=== PATIENT | female | born 1935 | race African-American/Black ===

== ENCOUNTER → 2017-04-20 | Outpatient (CLI) | payer MEDICARE, OTHER ==
[2014-07-19 16:00] VITALS: BP 162/72
--- NOTE | 2017-04-20 12:50 | RAD ---
DATE: 04/20/2017. EXAM: DIGITAL SCREEN LT W/CAD. HISTORY: Personal history of right breast cancer status post mastectomy. Routine left surveillance. COMPARISON: 03/08/2016, 03/19/2015, 11/21/2013. This study was interpreted with the benefit of Computerized Aided Detection (CAD). FINDINGS: The breast parenchyma shows scattered fibroglandular densities. Breast parenchyma level B.. There are no suspicious masses, microcalcifications or architectural distortion. A density superior to the left nipple on the MLO view has stable correlates. Sigmoid, scattered and coarse calcifications are benign. BI-RADS CATEGORY: 2 BENIGN FINDING(S). RECOMMENDED FOLLOW-UP: 12M 12 MONTH FOLLOW-UP. PQRS compliance statement: Patient information was entered into a reminder system with a target due date 04/20/2018 for the next mammogram. Mammography is a sensitive method for finding small breast cancers, but it does not detect them all and is not a substitute for careful clinical examination. A negative mammogram does not negate a clinically suspicious finding and should not result in delay in biopsying a clinically suspicious abnormality. "Our facility is accredited by the [employer] Mammography [employer]."
== END | disposition home or self-care (01) ==
LOC: MAMMO 11:17
PROVIDERS: ATTEND Registered Nurse
DX: Z12.31 Encounter for screening mammogram for malignant neoplasm of breast (principal)
CPT/HCPCS: G0202; 77067

== ENCOUNTER 2017-06-21 20:36 | Emergency (ER) | payer MEDICARE, OTHER ==
[~2017-06-21] VITALS: Ht 162.6 cm; Wt 68.0 kg
[2017-06-21] MEDS ORDERED: fentaNYL PF VIAL 100 MCG/2 ML VIAL IV ONE (22:30)
[2017-06-21 22:45] VITALS: BP 133/60
[2017-06-21] MEDS ORDERED: TRAM50TA PO (22:57)
--- NOTE | 2017-06-21 22:57 | PHYS DOC ---
Past Medical History Past Medical History: Arthritis, High Cholesterol, Hypertension, Other Additional Past Medical Histor: osteoarthritis, carpal tunnel, breast ca, sarcoidosis Past Surgical History: Appendectomy, Cancer Surgery, Cholecystectomy, Tonsillectomy, Other Additional Past Surgical Histo: right mastectomy Alcohol Use: None Drug Use: None Adult General Chief Complaint Chief Complaint: MECHANICAL FALL HPI HPI Patient is a 81 year old female presenting to the emergency department for evaluation of left hip pain that occurred after falling down earlier this morning. She says that she has been walking on it all day long however it is becoming more painful and swollen as the day has gone on. She says that she'll he takes a baby aspirin for anticoagulation. She is still able to ambulate but is limping. She lives at home with family and they are able to assist her. She denies any head neck chest abdomen back or other extremity pain. Review of Systems Review of Systems Constitutional: Denies fever or chills [] Cardiovascular: No additional information not addressed in HPI [] GI: Denies abdominal pain, nausea, vomiting, bloody stools or diarrhea [] Musculoskeletal: Denies back pain. + L hip joint pain [] Integument: Denies rash or skin lesions [] Neurologic: Denies headache, focal weakness or sensory changes [] All other systems were reviewed and found to be within normal limits, except as documented in this note. Current Medications Current Medications Current Medications Medications (Trade) Dose Ordered Sig/[facility] Start Time Stop Time Status Last Admin Dose Admin Fentanyl Citrate (Fentanyl 2ml Vial) 50 mcg 1X ONCE 06/21/17 22:30 06/21/17 22:31 DC 06/21/17 22:28 50 MCG Allergies Allergies Allergies Coded Allergies Type Severity Reaction Last Updated Verified Penicillins Allergy Intermediate 06/21/17 No Sulfa (Sulfonamide Antibiotics) Allergy Intermediate 06/21/17 No codeine Allergy Intermediate 06/21/17 No morphine Allergy Intermediate 06/21/17 No Physical Exam Physical Exam Constitutional: Well developed, well nourished, no acute distress, non-toxic appearance. [] Cardiovascular:Heart rate regular rhythm, no murmur [] Lungs & Thorax: Bilateral breath sounds clear to auscultation [] Abdomen: Bowel sounds normal, soft, no tenderness, no masses, no pulsatile masses. [] Skin: Warm, dry, no erythema, no rash. [] Extremities: Positive left lateral hip tenderness to palpation. There is a 6 x 6 cm contusion in this area. Neurologic: Alert and oriented X 3, normal motor function, normal sensory function, no focal deficits noted. [] Current Patient Data Vital Signs Vital Signs Date Time Temp Pulse Resp B/P (MAP) Pulse Ox O2 Delivery O2 Flow Rate FiO2 06/21/17 22:28 24 95 Room Air 06/21/17 20:50 98.6 71 173/74 (107) 98.6 EKG EKG [] Radiology/Procedures Radiology/Procedures Left hip and femur x-ray showed no obvious fracture dislocation soft tissue abnormality or foreign body. Course & Med Decision Making Course & Med Decision Making Patient has no obvious fractures on her x-ray and she is able to bear weight on her leg making a hip fracture quite unlikely. Patient said she would very much rather go home despite her impaired mobility however I told her if she is having more pain or decreased mobility she should come back to the emergency department as she may need admission for rehabilitation. Patient and family aware and agreeable with plan for discharge and verbalized understanding of the need for short-term follow-up in the strict ED return precautions discussed worsening pain weakness or other general concerns. Dragon Disclaimer Dragon Disclaimer This electronic medical record was generated, in whole or in part, using a voice recognition dictation system. Departure Departure Impression: Primary Impression: Contusion, hip Disposition: 01 HOME, SELF-CARE Condition: STABLE Referrals: SHAHZAD SONI APRN (PCP) Patient Instructions: Contusion Scripts Tramadol Hcl (TRAMADOL HCL) 50 Mg Tablet 0.5 TAB PO PRN Q6HRS, #15 TAB Prov: PATRICIA CAMARENA DO 06/21/17 Problem Qualifiers Primary Impression: Contusion, hip Encounter type: initial encounter Laterality: left Qualified Codes: S70.02XA - Contusion of left hip, initial encounter PATRICIA CAMARENA DO Jun 21, 2017 22:57
--- NOTE | 2017-06-22 07:20 | RAD ---
Indication: Fall and left hip pain. Time of exam 2145 hours. 2 views of the distal left femur demonstrate severe tricompartmental degenerative change at the knee with joint space narrowing and marginal spurring. The distal femur is intact without evidence of fracture. Visualized proximal tibia is intact. Impression: Severe degenerative changes at the knee. No acute abnormality is detected.
--- NOTE | 2017-06-22 07:21 | RAD ---
Indication: Fall and left hip pain. Time of exam 2141 hours. Multiple views of the left hip demonstrate normal femoral acetabular alignment. The joint space is well-maintained. The femoral head and neck are intact. No fractures are seen. Impression: No acute bony abnormality is detected.
== END 2017-06-21 23:10 | disposition home or self-care (01) ==
LOC: ER 20:36
DX: S70.02XA Contusion of left hip, initial encounter (principal); E78.00 Pure hypercholesterolemia, unspecified; I10 Essential (primary) hypertension; Z90.49 Acquired absence of other specified parts of digestive tract; Z88.0 Allergy status to penicillin; Z88.2 Allergy status to sulfonamides; Z88.5 Allergy status to narcotic agent; W18.39XA Other fall on same level, initial encounter; Y93.89 Activity, other specified; Y92.89 Other specified places as the place of occurrence of the external cause; Y99.8 Other external cause status
CPT/HCPCS: 73502; 73552; 96374; 99284; J3010

== ENCOUNTER → 2018-05-17 | Outpatient (CLI) | payer MEDICARE, OTHER ==
[~2018-05-17] MED LIST: TRAM50TA PO
--- NOTE | 2018-05-18 15:45 | RAD ---
Addendum: Only the left breast was imaged. DATE: 05/17/2018 12:00 PM EXAM: DIGITAL SCREEN LT W/CAD HISTORY: routine screening evaluation. COMPARISON: Prior mammographic imaging dating back to 04/10/2007 Bilateral CC and MLO views of the breasts were performed. Bilateral breast tomosynthesis was performed in CC and MLO projections. This study was interpreted with the benefit of Computerized Aided Detection (CAD ). Breast Density: The breast parenchyma is primarily fatty replaced. Breast parenchyma level density A. FINDINGS: Benign calcifications are present. No suspicious masses, microcalcifications or architectural distortion is present to suggest malignancy in either breast. The visualized axillae are unremarkable. IMPRESSION: No mammographic evidence of malignancy. BI-RADS CATEGORY: 2 BENIGN FINDING(S) RECOMMENDED FOLLOW-UP: 12M 12 MONTH FOLLOW-UP Annual screening mammography is recommended, unless clinically indicated sooner based on symptoms or change in physical exam. PQRS compliance statement: Patient information was entered into a reminder system with a target due date 06/17/2019 for the next mammogram. Mammography is a sensitive method for finding small breast cancers, but it does not detect them all and is not a substitute for careful clinical examination. A negative mammogram does not negate a clinically suspicious finding and should not result in delay in biopsying a clinically suspicious abnormality. "Our facility is accredited by the [employer] Mammography [employer]." SIMEOND
== END | disposition home or self-care (01) ==
LOC: MAMMO 09:50
PROVIDERS: ATTEND Registered Nurse
DX: Z12.31 Encounter for screening mammogram for malignant neoplasm of breast (principal)
CPT/HCPCS: 77067

== ENCOUNTER → 2019-05-21 | Outpatient (CLI) | payer MEDICARE, OTHER ==
--- NOTE | 2019-05-22 12:40 | RAD ---
DATE: 05/21/2019. EXAM: DIGITAL SCREEN LT W/CAD. HISTORY: Routine mammographic screening. COMPARISON: 05/17/2018. This study was interpreted with the benefit of Computerized Aided Detection (CAD). FINDINGS: Breast Density: SCATTERED The breast parenchyma shows scattered fibroglandular densities. Breast parenchyma level B.. Secretory and coarse calcifications are benign. The parenchymal pattern is stable. There are no suspicious masses, microcalcifications or architectural distortion. BI-RADS CATEGORY: 2 BENIGN FINDINGS). RECOMMENDED FOLLOW-UP: 12M 12 MONTH FOLLOW-UP. PQRS compliance statement: Patient information was entered into a reminder system with a target due date 05/21/2020 for the next mammogram. Mammography is a sensitive method for finding small breast cancers, but it does not detect them all and is not a substitute for careful clinical examination. A negative mammogram does not negate a clinically suspicious finding and should not result in delay in biopsying a clinically suspicious abnormality. "Our facility is accredited by the [employer] Mammography Program."
== END | disposition home or self-care (01) ==
LOC: MAMMO 10:14
PROVIDERS: ATTEND Internal Medicine Hematology & Oncology
DX: Z12.31 Encounter for screening mammogram for malignant neoplasm of breast (principal); N64.89 Other specified disorders of breast
CPT/HCPCS: 77067

== ENCOUNTER 2019-05-30 22:16 | Inpatient (IN) | payer MEDICARE, OTHER ==
[~2019-05-30] VITALS: Ht 162.6 cm; Wt 68.9 kg
[2019-05-30] MEDS ORDERED: FAMOTIDINE 20 MG/2 ML VIAL IVP ONE (22:30)
[2019-05-30] MEDS ORDERED: IV NORMAL SALINE 1000ML BAG 1,000 ML IV ONE (22:30)
[2019-05-30] MEDS ORDERED: ONDANSETRON PF 4 MG/2 ML VIAL. IV ONE (22:30)
[2019-05-30 23:05] LABS: BASO # 0.1 x10^3/uL (0.0-0.2); BASO % 1 % (0-3); EOS # 0.1 x10^3/uL (0.0-0.7); EOS % 1 % (0-3); HEMATOCRIT 39.1 % (36.0-47.0); HEMOGLOBIN 13.1 g/dL (12.0-15.5); LYMPH # 1.2 x10^3/uL (1.0-4.8); LYMPH % 23 % (24-48); MEAN CORPUSCULAR HEMOGLOBIN 29 pg (25-35); MEAN CORPUSCULAR HGB CONC 34 g/dL (31-37); MEAN CORPUSCULAR VOLUME 88 fL (79-100); MONO # 0.6 x10^3/uL (0.0-1.1); MONO % 11 % (0-9); NEUT # 3.5 x10^3/uL (1.8-7.7); NEUT % 64 % (31-73); PLATELET COUNT 171 x10^3/uL (140-400); RED BLOOD COUNT 4.46 x10^6/uL (3.50-5.40); RED CELL DISTRIBUTION WIDTH 14.7 % (11.5-14.5); WHITE BLOOD COUNT 5.4 x10^3/uL (4.0-11.0)
[2019-05-30 23:13] LABS: CREATININE 1.2 mg/dL (0.6-1.0); GFR 51.9; POTASSIUM 3.4 mmol/L (3.5-5.1)
[2019-05-30 23:15] LABS: PROTHROMBIN TIME PATIENT 13.7 SEC (11.7-14.0)
[2019-05-30 23:20] LABS: ALBUMIN 3.5 g/dL (3.4-5.0); ALBUMIN/GLOBULIN RATIO 0.9 (1.0-1.7); MAGNESIUM 2.4 mg/dL (1.8-2.4); TOTAL BILIRUBIN 0.6 mg/dL (0.2-1.0); TOTAL PROTEIN 7.6 g/dL (6.4-8.2)
[2019-05-30] MEDS ORDERED: CONTRAST GIVEN. MC PRN (23:45)
[2019-05-30] MEDS ORDERED: IOHEXOL 300 MG/ML 100ML VIAL. IV ONE (23:45)
--- NOTE | 2019-05-30 23:46 | PHYS DOC ---
Past Medical History Past Medical History: Arthritis, High Cholesterol, Hypertension, Hypothyroid, Other Additional Past Medical Histor: osteoarthritis, carpal tunnel, breast ca, sarcoidosis Past Surgical History: Appendectomy, Cancer Surgery, Cholecystectomy, Tonsillectomy, Other Additional Past Surgical Histo: right mastectomy Additional Information: Nonsmoker Alcohol Use: None Drug Use: None Adult General Chief Complaint Chief Complaint: ABDOMINAL PAIN HPI HPI 83-year-old female presents with report of diffuse abdominal pain with nausea and vomiting and soft stools times one week. Patient reports she has vomited approximately 2-3 times a day and has soft loose stools approximately 6-7 times per day. Patient denies any fever or chills. Denies trauma. Denies known sick contacts. Review of Systems Review of Systems Constitutional: Denies fever or chills Eyes: Denies redness or eye pain HENT: Denies nasal congestion or sore throat Respiratory: Denies cough or shortness of breath Cardiovascular: Denies chest pain or palpitations GI: Reports abdominal pain, nausea, vomiting, and loose stools : Denies dysuria or hematuria Musculoskeletal: Denies back pain or joint pain Integument: Denies rash or skin lesions Neurologic: Denies headache, focal weakness or sensory changes Complete systems were reviewed and found to be within normal limits, except as documented in this note. Current Medications Current Medications Current Medications Medications (Trade) Dose Ordered Sig/[facility] Start Time Stop Time Status Last Admin Dose Admin Famotidine (Pepcid Vial) 20 mg 1X ONCE 05/30/19 22:30 05/30/19 22:31 DC 05/30/19 23:07 20 MG Ondansetron HCl (Zofran) 4 mg 1X ONCE 05/30/19 22:30 05/30/19 22:31 DC 05/30/19 23:07 4 MG Sodium Chloride 1,000 ml @ 1,000 mls/hr 1X ONCE 05/30/19 22:30 05/30/19 23:29 DC 05/30/19 23:08 1,000 MLS/HR Allergies Allergies Allergies Coded Allergies Type Severity Reaction Last Updated Verified Penicillins Allergy Intermediate 06/21/17 No Sulfa (Sulfonamide Antibiotics) Allergy Intermediate 06/21/17 No codeine Allergy Intermediate 06/21/17 No morphine Allergy Intermediate 06/21/17 No Physical Exam Physical Exam Constitutional: Well developed, well nourished, no acute distress, non-toxic appearance HENT: Normocephalic, atraumatic, oropharynx moist Eyes: Conjunctiva normal, no discharge Neck: Normal range of motion, no tenderness, supple Cardiovascular: Heart rate normal, regular rhythm Lungs & Thorax: Bilateral breath sounds clear to auscultation, no wheezing Abdomen: Soft, diffuse tenderness, no guarding/rebound tenderness Skin: Warm, dry, no erythema, no rash Back: No tenderness, no CVA tenderness Extremities: No tenderness, ROM intact, 1+ bilateral lower extremity edema Neurologic: Alert and oriented X 3, no focal deficits noted Psychologic: Affect normal, judgement normal Current Patient Data Vital Signs Vital Signs Date Time Temp Pulse Resp B/P (MAP) Pulse Ox O2 Delivery O2 Flow Rate FiO2 05/30/19 23:30 68 20 135/62 (86) 98 Room Air 05/30/19 22:25 97.7 97.7 Lab Values Laboratory Tests Test 05/30/19 22:59 White Blood Count 5.4 x10^3/uL (4.0-11.0) Red Blood Count 4.46 x10^6/uL (3.50-5.40) Hemoglobin 13.1 g/dL (12.0-15.5) Hematocrit 39.1 % (36.0-47.0) Mean Corpuscular Volume 88 fL (79-100) Mean Corpuscular Hemoglobin 29 pg (25-35) Mean Corpuscular Hemoglobin Concent 34 g/dL (31-37) Red Cell Distribution Width 14.7 % (11.5-14.5) H Platelet Count 171 x10^3/uL (140-400) Neutrophils (%) (Auto) 64 % (31-73) Lymphocytes (%) (Auto) 23 % (24-48) L Monocytes (%) (Auto) 11 % (0-9) H Eosinophils (%) (Auto) 1 % (0-3) Basophils (%) (Auto) 1 % (0-3) Neutrophils # (Auto) 3.5 x10^3/uL (1.8-7.7) Lymphocytes # (Auto) 1.2 x10^3/uL (1.0-4.8) Monocytes # (Auto) 0.6 x10^3/uL (0.0-1.1) Eosinophils # (Auto) 0.1 x10^3/uL (0.0-0.7) Basophils # (Auto) 0.1 x10^3/uL (0.0-0.2) Prothrombin Time 13.7 SEC (11.7-14.0) Prothrombin Time INR 1.1 (0.8-1.1) Activated Partial Thromboplast Time 26 SEC (24-38) Sodium Level 141 mmol/L (136-145) Potassium Level 3.4 mmol/L (3.5-5.1) L Chloride Level 102 mmol/L (98-107) Carbon Dioxide Level 34 mmol/L (21-32) H Anion Gap 5 (6-14) L Blood Urea Nitrogen 18 mg/dL (7-20) Creatinine 1.2 mg/dL (0.6-1.0) H Estimated GFR (Cockcroft-Gault) 51.9 BUN/Creatinine Ratio 15 (6-20) Glucose Level 110 mg/dL (70-99) H Calcium Level 9.0 mg/dL (8.5-10.1) Magnesium Level 2.4 mg/dL (1.8-2.4) Total Bilirubin 0.6 mg/dL (0.2-1.0) Aspartate Amino Transferase (AST) 22 U/L (15-37) Alanine Aminotransferase (ALT) 14 U/L (14-59) Alkaline Phosphatase 71 U/L (46-116) Creatine Kinase 141 U/L (26-192) Creatine Kinase MB (Mass) 3.9 ng/mL (0.0-3.6) H Creatine Kinase MB Relative Index 2.8 % (0-4) Troponin I Quantitative 0.155 ng/mL (0.000-0.055) Total Protein 7.6 g/dL (6.4-8.2) Albumin 3.5 g/dL (3.4-5.0) Albumin/Globulin Ratio 0.9 (1.0-1.7) L Lipase 151 U/L (73-393) Laboratory Tests 05/30/19 22:59 Laboratory Tests 05/30/19 22:59 EKG EKG @2310 NSR at 65bpm, NO ST elevation, nonspecific t wave inversion I, aVL and V2. Radiology/Procedures Radiology/Procedures PROCEDURE: CT ABD PELV W/ IV CONTRST ONLY INDICATION: Abdomen pain COMPARISON: August 2011 TECHNIQUE: Axial CT images obtained through the abdomen and pelvis with contrast . One or more of the following individualized dose reduction techniques were utilized for this examination: 1. Automated exposure control; 2. Adjustment of the mA and/or kV according to patient size; 3. Use of iterative reconstruction technique. FINDINGS: at least moderate calcific atherosclerosis. There are some borderline sized right inguinal lymph nodes. There is some prominence of the bile ducts. At the gallbladder fossa there is some fluid and air identified. When comparing the prior exam this is likely secondary to tortuous duodenum extending through the region. No definite peripancreatic fluid collection. Spleen unremarkable. No left-sided hydronephrosis. Urinary bladder is largely decompressed. No right-sided hydronephrosis. The colon is not very distended with some prominence of the wall the colon identified including near the hepatic flexure with some questionable mild haziness to the fat. No dilated loops of bowel to suggest obstruction. Scattered sclerotic foci within the osseous structures is again seen. For example at the left iliac wing measuring 10 mm which was previously 6 mm. Patchy osseous demineralization. Grade 1 anterolisthesis of L4 on 5. IMPRESSION: * The colon is not very distended but there is some prominence the wall with mild haziness to the adjacent fat centered around the hepatic flexure. Would correlate with symptoms in the region since this can be seen with causes such as colitis. * Prominence of the biliary tree postcholecystectomy which is a commonly seen finding. * Scattered sclerotic foci in the osseous structures which appears slightly increased from prior. Most common cause would be bone island but given the slight increase follow-up could be obtained to ensure no growth to exclude neoplastic causes. * Patchy osseous demineralization which could be from benign osteopenia but a marrow infiltrative process would be difficult to exclude on CT. If further evaluation is desired bone scan could BE obtained Electronically signed by: Kranthi Bauman MD (05/31/2019 12:14 AM) [facility] Course & Med Decision Making Course & Med Decision Making Pertinent Labs and Imaging studies reviewed. (See chart for details) Elderly patient presents with report of abdominal pain with associated nausea and vomiting. Reports has also been having some loose stools. Denies known sick contacts. Labs obtained and posted to chart. Troponin slightly elevated. EKG stable. CT abdomen/pelvis with findings concerning for possible colitis. IV fluid hydration provided. Empiric antibiotics initiated. Patient requiring admission for further evaluation and treatment. Discussed with Dr. Salazar (hospitalist) who is in agreement with admission. Discussed findings and plan with patient and family, who acknowledge understanding and agreement. Dragon Disclaimer Dragon Disclaimer This electronic medical record was generated, in whole or in part, using a voice recognition dictation system. Departure Departure Impression: Primary Impression: Abdominal pain Additional Impressions: Nausea & vomiting Elevated troponin Disposition: ADMITTED INPATIENT Admitting Physician: TSERING (Marie) Condition: GUARDED Referrals: SHAHZAD SONI APRN (PCP) The HEART Score for CP Pts HEART Score for Chest Pain: HEART Score for Chest Pain Response (Comments) Value History Slighlty/Non-Suspicious 0 ECG Normal 0 Age > 65 2 Risk Factors 1 or 2 Risk Factors 1 Troponin >1-<3x Normal Limit 1 Total 4 Risk Factors: Risk Factors: DM, Current or recent (<one month) smoker, HTN, HLP, family history of CAD, obesity. Risk Scores: Score 0 - 3: 2.5% MACE over next 6 weeks - Discharge Home Score 4 - 6: 20.3% MACE over next 6 weeks - Admit for Clinical Observation Score 7 - 10: 72.7% MACE over next 6 weeks - Early Invasive Strategies Critical Care Time Critical care time was 30 minutes which includes time at bedside, spent in discussion of patient's care with specialists and/or family members, with interpretation of laboratory and/or radiological studies and is exclusive of procedures. Problem Qualifiers Primary Impression: Abdominal pain Abdominal location: unspecified location Qualified Codes: R10.9 - Un specified abdominal pain Additional Impressions: Nausea & vomiting Vomiting type: unspecified Vomiting Intractability: unspecified Qualified Codes: R11.2 - Nausea with vomiting, unspecified FREDI WILSON DO May 30, 2019 23:46
[2019-05-31] VITALS (7 sets, daily range): BP systolic 121–151; BP diastolic 61–81
[2019-05-31] MEDS ORDERED: ONDANSETRON PF 4 MG/2 ML VIAL. IV PRN
--- NOTE | 2019-05-31 00:17 | RAD ---
INDICATION: Abdomen pain COMPARISON: August 2011 TECHNIQUE: Axial CT images obtained through the abdomen and pelvis with contrast . One or more of the following individualized dose reduction techniques were utilized for this examination: 1. Automated exposure control; 2. Adjustment of the mA and/or kV according to patient size; 3. Use of iterative reconstruction technique. FINDINGS: at least moderate calcific atherosclerosis. There are some borderline sized right inguinal lymph nodes. There is some prominence of the bile ducts. At the gallbladder fossa there is some fluid and air identified. When comparing the prior exam this is likely secondary to tortuous duodenum extending through the region. No definite peripancreatic fluid collection. Spleen unremarkable. No left-sided hydronephrosis. Urinary bladder is largely decompressed. No right-sided hydronephrosis. The colon is not very distended with some prominence of the wall the colon identified including near the hepatic flexure with some questionable mild haziness to the fat. No dilated loops of bowel to suggest obstruction. Scattered sclerotic foci within the osseous structures is again seen. For example at the left iliac wing measuring 10 mm which was previously 6 mm. Patchy osseous demineralization. Grade 1 anterolisthesis of L4 on 5. IMPRESSION: * The colon is not very distended but there is some prominence the wall with mild haziness to the adjacent fat centered around the hepatic flexure. Would correlate with symptoms in the region since this can be seen with causes such as colitis. * Prominence of the biliary tree postcholecystectomy which is a commonly seen finding. * Scattered sclerotic foci in the osseous structures which appears slightly increased from prior. Most common cause would be bone island but given the slight increase follow-up could be obtained to ensure no growth to exclude neoplastic causes. * Patchy osseous demineralization which could be from benign osteopenia but a marrow infiltrative process would be difficult to exclude on CT. If further evaluation is desired bone scan could BE obtained Electronically signed by: Kranthi Bauman MD (05/31/2019 12:14 AM) [facility]
[2019-05-31] MEDS ORDERED: ASPIRIN 325 MG TABLET PO ONE (00:45)
[2019-05-31] MEDS ORDERED: ASPI81TA50 PO (01:07)
[2019-05-31] MEDS ORDERED: FURO40TA4 PO (01:07)
[2019-05-31] MEDS ORDERED: LEVO25TA4 PO (01:07)
[2019-05-31] MEDS ORDERED: ACET325T9 PO (01:07)
[2019-05-31] MEDS ORDERED: [UNRECOGNIZED DRUG - OTHER] PO (01:14)
[2019-05-31 06:55] LABS: CHOLESTEROL/HDL RATIO 3.1
--- NOTE | 2019-05-31 07:43 | PDOC1 ---
History and Physical Date of Admission Date of Admission DATE: 05/31/19 TIME: 07:43 Identification/Chief Complaint Chief Complaint Nausea vomiting and diarrhea Source Source: Patient History of Present Illness History of Present Illness Ms Coulter is an 83-year-old F w/ PMHx hyperlipidemia, hypertension, hypothyroidism, sarcoidosis, breast cancer, osteoarthrosis who p/w diffuse abdominal pain, worse in left lower quadrant that has been progressive for the past week. She also notes nausea, vomiting and loose stools. CT abdomen shows no obstructive process. Cr 1.2, K3.4 and troponin elevated at 0.155. Admitted for further care. Past Medical History Cardiovascular: HTN, Hyperlipidemia Pulmonary: No pertinent hx GI: No pertinent hx Heme/Onc: No pertinent hx Hepatobiliary: No pertinent hx Psych: No pertinent hx Rheumatologic: Other (Sarcoid) Infectious disease: No pertinent hx ENT: No pertinent hx Renal/: No pertinent hx Endocrine: Hypothyroidism Dermatology: No pertinent hx Past Surgical History Past Surgical History: Appendectomy, Cholecystectomy, Mastectomy, Tonsillectomy Family History Family History: High Cholestrol, Hypertension Social History Smoke: No ALCOHOL: none Drugs: None Current Problem List Problem List Problems Medical Problems: (1) Abdominal pain Status: Acute (2) Elevated troponin Status: Acute (3) Nausea & vomiting Status: Acute Current Medications Current Medications Current Medications Ondansetron HCl (Zofran) 4 mg 1X ONCE IV Last administered on 05/30/19at 23:07; Start 05/30/19 at 22:30; Stop 05/30/19 at 22:31; Status DC Famotidine (Pepcid Vial) 20 mg 1X ONCE IVP Last administered on 05/30/19at 23:07; Start 05/30/19 at 22:30; Stop 05/30/19 at 22:31; Status DC Sodium Chloride 1,000 ml @ 1,000 mls/hr 1X ONCE IV Last administered on 05/30/19at 23:08; Start 05/30/19 at 22:30; Stop 05/30/19 at 23:29; Status DC Iohexol (Omnipaque 300 Mg/ml) 60 ml 1X ONCE IV Last administered on 05/30/19at 23:46; Start 05/30/19 at 23:45; Stop 05/30/19 at 23:46; Status DC Info (CONTRAST GIVEN -- Rx MONITORING) 1 each PRN DAILY PRN MC SEE COMMENTS; Start 05/30/19 at 23:45; Stop 06/01/19 at 23:44 Ondansetron HCl (Zofran) 4 mg PRN Q8HRS PRN IV NAUSEA/VOMITING; Start 05/31/19 at 00:00; Stop 05/31/19 at 23:59 Aspirin (Pankaj Aspirin) 325 mg 1X ONCE PO Last administered on 05/31/19at 00:39; Start 05/31/19 at 00:45; Stop 05/31/19 at 00:46; Status DC Active Scripts Active Tramadol Hcl 50 Mg Tablet 0.5 Tab PO PRN Q6HRS Reported [potassium cholride] 30 Meq PO DAILY Tylenol (Acetaminophen) 325 Mg Tablet 1-2 Tab PO QID PRN Furosemide 40 Mg Tablet 1 Tab PO DAILY Aspir-Low (Aspirin) 81 Mg Tablet.dr 1 Tab PO DAILY Levothyroxine Sodium 25 Mcg Tablet 1 Tab PO DAILY Allergies Allergies: Coded Allergies: Penicillins (Unverified Allergy, Intermediate, 06/21/17) Sulfa (Sulfonamide Antibiotics) (Unverified Allergy, Intermediate, 06/21/17) codeine (Unverified Allergy, Intermediate, 06/21/17) morphine (Unverified Allergy, Intermediate, 06/21/17) ROS General: YES: Fatigue, Malaise, Appetite; No: Chills, Night Sweats, Other PSYCHOLOGICAL ROS: No: Anxiety, Behavioral Disorder, Concentration difficultie, Decreased libido, Depression, Disorientation, Hallucinations, Hostility, Irritablity, Memory difficulties, Mood Swings, Obsessive thoughts, Physical abuse, Sexual abuse, Sleep disturbances, Suicidal ideation, Other Eyes: No Blurry vision, No Decreased vision, No Double vision, No Dry eyes, No Excessive tearing, No Eye Pain, No Itchy Eyes, No Loss of vision, No Photophob ia, No Scotomata, No Uses contacts, No Uses glasses, No Other HEENT: No: Heacaches, Visual Changes, Hearing change, Nasal congestion, Nasal discharge, Oral lesions, Sinus pain, Sore Throat, Epistaxis, Sneezing, Snoring, Tinnitus, Vertigo, Vocal changes, Other ALLERGY AND IMMUNOLOGY: No: Hives, Insect Bite Sensitivity, Itchy/Watery Eyes, Nasal Congestion, Post Nasal Drip, Seasonal Allergies, Other Hematological and Lymphatic: No: Bleeding Problems, Blood Clots, Blood Transfusions, Brusing, Night Sweats, Pallor, Swollen Lymph Nodes, Other ENDOCRINE: No: Breast Changes, Galactorrhea, Hair Pattern Changes, Hot Flashes, Malaise/lethargy, Mood Swings, Palpitations, Polydipsia/polyuria, Skin Changes, Temperature Intolerance, Unexpected Weight Changes, Other Breast: No New/Changing Breast Lumps, No Nipple changes, No Nipple discharge, No Other Respiratory: No: Cough, Hemoptysis, Orthopnea, Pleuritic Pain, Shortness of breath, SOB with excertion, Sputum Changes, Stridor, Tachypnea, Wheezing, Other Cardiovascular: No Chest Pain, No Palpitations, No Orthopnea, No Paroxysmal Noc. Dyspnea, No Edema, No Lt Headedness, No Other Gastrointestinal: Yes Nausea, Yes Vomiting, Yes Abdominal Pain, Yes Diarrhea; No Constipation, No Melena, No Hematochezia, No Other Genitourinary: No Dysuria, No Frequency, No Incontinence, No Hematuria, No Retention, No Discharge, No Urgency, No Pain, No Flank Pain, No Other, No , No , No , No , No , No , No Musculoskeletal: No Gait Disturbance, No Joint Pain, No Joint Stiffness, No Joint Swelling, No Muscle Pain, No Muscular Weakness, No Pain In:, No Swelling In:, No Other Neurological: No Behavorial Changes, No Bowel/Bladder ControlChng, No Confusion, No Dizziness, No Gait Disturbance, No Headaches, No Impaired Coord/balance, No Memory Loss, No Numbness/Tingling, No Seizures, No Speech Problems, No Tremors, No Visual Changes, No Weakness, No Other Physical Exam General: Alert, Oriented X3, Cooperative, mild distress HEENT: Atraumatic, PERRLA, EOMI, Mucous membr. moist/pink Lungs: Clear to auscultation, Normal air movement Heart: S1S2, RRR, no thrills, no rubs Abdomen: Normal bowel sounds, Soft, No hepatosplenomegaly, No masses, Other (LLQ tender) Extremities: No clubbing, No cyanosis, No edema, Normal pulses, No tenderness/swelling Skin: No rashes, No breakdown, No significant lesion Neuro: Normal gait, Normal speech, Strength at 5/5 X4 ext, Normal tone, Sensation intact, Cranial nerves 3-12 NL, Reflexes 2+ Psych/Mental Status: Mental status NL, Mood NL Vitals Vitals Vital Signs Date Time Temp Pulse Resp B/P (MAP) Pulse Ox O2 Delivery O2 Flow Rate FiO2 05/31/19 07:07 98.2 62 16 143/65 (91) 96 Room Air 98.2 Labs Labs Laboratory Tests Test 05/30/19 22:59 05/31/19 03:30 05/31/19 06:17 White Blood Count 5.4 x10^3/uL (4.0-11.0) Red Blood Count 4.46 x10^6/uL (3.50-5.40) Hemoglobin 13.1 g/dL (12.0-15.5) Hematocrit 39.1 % (36.0-47.0) Mean Corpuscular Volume 88 fL (79-100) Mean Corpuscular Hemoglobin 29 pg (25-35) Mean Corpuscular Hemoglobin Concent 34 g/dL (31-37) Red Cell Distribution Width 14.7 % (11.5-14.5) Platelet Count 171 x10^3/uL (140-400) Neutrophils (%) (Auto) 64 % (31-73) Lymphocytes (%) (Auto) 23 % (24-48) Monocytes (%) (Auto) 11 % (0-9) Eosinophils (%) (Auto) 1 % (0-3) Basophils (%) (Auto) 1 % (0-3) Neutrophils # (Auto) 3.5 x10^3/uL (1.8-7.7) Lymphocytes # (Auto) 1.2 x10^3/uL (1.0-4.8) Monocytes # (Auto) 0.6 x10^3/uL (0.0-1.1) Eosinophils # (Auto) 0.1 x10^3/uL (0.0-0.7) Basophils # (Auto) 0.1 x10^3/uL (0.0-0.2) Prothrombin Time 13.7 SEC (11.7-14.0) Prothromb Time International Ratio 1.1 (0.8-1.1) Activated Partial Thromboplast Time 26 SEC (24-38) Sodium Level 141 mmol/L (136-145) Potassium Level 3.4 mmol/L (3.5-5.1) Chloride Level 102 mmol/L (98-107) Carbon Dioxide Level 34 mmol/L (21-32) Anion Gap 5 (6-14) Blood Urea Nitrogen 18 mg/dL (7-20) Creatinine 1.2 mg/dL (0.6-1.0) Estimated GFR (Cockcroft-Gault) 51.9 BUN/Creatinine Ratio 15 (6-20) Glucose Level 110 mg/dL (70-99) Calcium Level 9.0 mg/dL (8.5-10.1) Magnesium Level 2.4 mg/dL (1.8-2.4) Total Bilirubin 0.6 mg/dL (0.2-1.0) Aspartate Amino Transf (AST/SGOT) 22 U/L (15-37) Alanine Aminotransferase (ALT/SGPT) 14 U/L (14-59) Alkaline Phosphatase 71 U/L (46-116) Creatine Kinase 141 U/L (26-192) Creatine Kinase MB (Mass) 3.9 ng/mL (0.0-3.6) Creatine Kinase MB Relative Index 2.8 % (0-4) Troponin I Quantitative 0.155 ng/mL (0.000-0.055) 0.168 ng/mL (0.000-0.055) 0.165 ng/mL (0.000-0.055) Total Protein 7.6 g/dL (6.4-8.2) Albumin 3.5 g/dL (3.4-5.0) Albumin/Globulin Ratio 0.9 (1.0-1.7) Lipase 151 U/L (73-393) Triglycerides Level 67 mg/dL (0-150) Cholesterol Level 245 mg/dL (0-200) LDL Cholesterol, Calculated 153 mg/dL (0-100) VLDL Cholesterol, Calculated 13 mg/dL (0-40) Non-HDL Cholesterol Calculated 166 mg/dL (0-129) HDL Cholesterol 79 mg/dL (40-60) Cholesterol/HDL Ratio 3.1 Laboratory Tests Test 05/30/19 22:59 05/31/19 03:30 05/31/19 06:17 White Blood Count 5.4 x10^3/uL (4.0-11.0) Red Blood Count 4.46 x10^6/uL (3.50-5.40) Hemoglobin 13.1 g/dL (12.0-15.5) Hematocrit 39.1 % (36.0-47.0) Mean Corpuscular Volume 88 fL (79-100) Mean Corpuscular Hemoglobin 29 pg (25-35) Mean Corpuscular Hemoglobin Concent 34 g/dL (31-37) Red Cell Distribution Width 14.7 % (11.5-14.5) Platelet Count 171 x10^3/uL (140-400) Neutrophils (%) (Auto) 64 % (31-73) Lymphocytes (%) (Auto) 23 % (24-48) Monocytes (%) (Auto) 11 % (0-9) Eosinophils (%) (Auto) 1 % (0-3) Basophils (%) (Auto) 1 % (0-3) Neutrophils # (Auto) 3.5 x10^3/uL (1.8-7.7) Lymphocytes # (Auto) 1.2 x10^3/uL (1.0-4.8) Monocytes # (Auto) 0.6 x10^3/uL (0.0-1.1) Eosinophils # (Auto) 0.1 x10^3/uL (0.0-0.7) Basophils # (Auto) 0.1 x10^3/uL (0.0-0.2) Prothrombin Time 13.7 SEC (11.7-14.0) Prothromb Time International Ratio 1.1 (0.8-1.1) Activated Partial Thromboplast Time 26 SEC (24-38) Sodium Level 141 mmol/L (136-145) Potassium Level 3.4 mmol/L (3.5-5.1) Chloride Level 102 mmol/L (98-107) Carbon Dioxide Level 34 mmol/L (21-32) Anion Gap 5 (6-14) Blood Urea Nitrogen 18 mg/dL (7-20) Creatinine 1.2 mg/dL (0.6-1.0) Estimated GFR (Cockcroft-Gault) 51.9 BUN/Creatinine Ratio 15 (6-20) Glucose Level 110 mg/dL (70-99) Calcium Level 9.0 mg/dL (8.5-10.1) Magnesium Level 2.4 mg/dL (1.8-2.4) Total Bilirubin 0.6 mg/dL (0.2-1.0) Aspartate Amino Transf (AST/SGOT) 22 U/L (15-37) Alanine Aminotransferase (ALT/SGPT) 14 U/L (14-59) Alkaline Phosphatase 71 U/L (46-116) Creatine Kinase 141 U/L (26-192) Creatine Kinase MB (Mass) 3.9 ng/mL (0.0-3.6) Creatine Kinase MB Relative Index 2.8 % (0-4) Troponin I Quantitative 0.155 ng/mL (0.000-0.055) 0.168 ng/mL (0.000-0.055) 0.165 ng/mL (0.000-0.055) Total Protein 7.6 g/dL (6.4-8.2) Albumin 3.5 g/dL (3.4-5.0) Albumin/Globulin Ratio 0.9 (1.0-1.7) Lipase 151 U/L (73-393) Triglycerides Level 67 mg/dL (0-150) Cholesterol Level 245 mg/dL (0-200) LDL Cholesterol, Calculated 153 mg/dL (0-100) VLDL Cholesterol, Calculated 13 mg/dL (0-40) Non-HDL Cholesterol Calculated 166 mg/dL (0-129) HDL Cholesterol 79 mg/dL (40-60) Cholesterol/HDL Ratio 3.[address] abdomen - * The colon is not very distended but there is some prominence the wall with mild haziness to the adjacent fat centered around the hepatic flexure. Would correlate with symptoms in the region since this can be seen with causes such as colitis. * Prominence of the biliary tree postcholecystectomy which is a commonly seen finding. * Scattered sclerotic foci in the osseous structures which appears slightly increased from prior. Most common cause would be bone island but given the slight increase follow-up could be obtained to ensure no growth to exclude neoplastic causes. * Patchy osseous demineralization which could be from benign osteopenia but a marrow infiltrative process would be difficult to exclude on CT. If further evaluation is desired bone scan could BE obtained VTE Prophylaxis Ordered VTE Prophylaxis Devices: No VTE Pharmacological Prophylaxi: Yes Assessment/Plan Assessment/Plan A/P: N/V/D - likely gastroenteritis. Will consult GI, ADAT Elevated troponin - likely demand ischemia from acute GI process. Trended troponins, consulted cardiology Hypothyroidism - cont meds H/o breast cancer - in remission Sarcoidosis - stable KYMBERLY - likely vasomotor nephropathy from GI losses Hypokalemia - replace oral, likely GI loss HTN - cont meds HLD - cont meds FEN - General diet PPX - lovenox FULL CODE Inpatient for elevated troponin, unable to take po RIFFENeva,KATRIN Chacko MD May 31, 2019 07:43
--- NOTE | 2019-05-31 10:19 | EKG ---
[facility] [address] [place] [address] Test Date: 2019-05-30 Test Time: 23:10:34 Pat Name: SHARON BASHIR Department: Room: 256 1 Gender: F [employer]: : 1935 Requested By: RFEDI WILSON Order Number: [id number] Reading MD: Lewis Cadena MD Measurements Intervals [place] Rate: 65 P: 59 NM: 296 QRS: -64 QRSD: 102 T: 159 QT: 464 QTc: 488 Interpretive Statements SINUS RHYTHM PROLONGED NM INTERVAL LVH PRECORDIAL LEAD MISPLACEMENT LIKELY CANNOT RULE OUT INFERIOR INFARCT Electronically Signed On 05-31-2019 10:22:24 DETENTION DEPUTY by Lewis Cadena MD
--- NOTE | 2019-05-31 10:39 | PDOC2 ---
CARDIOLOGY CONSULT NOTE CHEIF COMPLAINT: Abd pain with eating HPI: Pleasant 83 y.o woman with past history of diastolic HF who presents with abd pain x 7 days that is worsened with eating. Her pain was getting worse enough that she came to ER. She had pain after about 10 minutes of eating. She also has had non-bloody diarrhea x 7 days. She denies any prior cardiac symptoms such as chest pain, dyspnea, orthopnea, palpitations or PND. She does endorse mild LE edema. No prior coronary interventions. She was told that she has HF in the past. Daughter at bedside and has no acute concerns. PMHX: 1. HTN 2. DLP 3. Presumed diastolic HF SOCHX: No alcohol/tob or illicits FAMHX: NC CURRENT MEDS: Current Medications Medications (Trade) Dose Ordered Sig/Jovana Route PRN Reason Start Time Stop Time Status Last Admin Dose Admin Ondansetron HCl (Zofran) 4 mg 1X ONCE IV 05/30/19 22:30 05/30/19 22:31 DC 05/30/19 23:07 Famotidine (Pepcid Vial) 20 mg 1X ONCE IVP 05/30/19 22:30 05/30/19 22:31 DC 05/30/19 23:07 Sodium Chloride 1,000 ml @ 1,000 mls/hr 1X ONCE IV 05/30/19 22:30 05/30/19 23:29 DC 05/30/19 23:08 Iohexol (Omnipaque 300 Mg/ml) 60 ml 1X ONCE IV 05/30/19 23:45 05/30/19 23:46 DC 05/30/19 23:46 Aspirin (Pankaj Aspirin) 325 mg 1X ONCE PO 05/31/19 00:45 05/31/19 00:46 DC 05/31/19 00:39 ALLERGIES: Allergies Coded Allergies Type Severity Reaction Last Updated Verified Penicillins Allergy Intermediate 06/21/17 No Sulfa (Sulfonamide Antibiotics) Allergy Intermediate 06/21/17 No codeine Allergy Intermediate 06/21/17 No morphine Allergy Intermediate 06/21/17 No ROS: Negative unless otherwise mentioned above in HPI PHYSICAL EXAM: Vital Signs/I&O: Vital Signs Date Time Temp Pulse Resp B/P (MAP) Pulse Ox O2 Delivery O2 Flow Rate FiO2 05/31/19 07:54 Room Air 05/31/19 07:07 98.2 62 16 143/65 (76) 96 98.2 I & O 05/30/19 05/30/19 05/31/19 15:00 23:00 07:00 Intake Total 1000 ml Balance 1000 ml Physical Exam: GEN.: No apparent distress. Alert and oriented. HEENT: Head is normocephalic, atraumatic NECK: Supple. LUNGS: Clear to auscultation. HEART: RRR, S1, S2 present. +3/6 TR murmur ABDOMEN: Soft, mild TTP to palpation of the LLQ. EXTREMITIES: Without any cyanosis. NEUROLOGIC: Normal speech, normal tone PSYCHIATRIC: Normal affect, normal mood. SKIN: No ulcerations DIAGNOSTIC TESTING: Labs reviewed Trop minimally elevated ASSESSMENT: 1. Abdominal pain - non-cardiac, likely colitis, mesenteric ischemia in the differential. Less likely gastroenteritis given 7 day time course. Defer further w/u to GI colleagues. 2. HTN - well controlled 3. DLP - LDL elevated 4. Diastolic HF - stable. PLAN: 1. Echo wnl. No further CV recs. 2. She can follow up with PCP for mgmt of DLP. THanks. Pls call with questions. KAMALJIT CHAPARRO MD May 31, 2019 10:39
--- NOTE | 2019-05-31 11:49 | CARD ---
MR#: [id number] Date of Study: 05/31/2019 Ordering Physician: KAMALJIT CHAPARRO, Referring Physician: KAMALJIT CHAPARRO, Tech: Radha Zepeda [facility] APPROVED REPORT EXAM: Two-dimensional and M-mode echocardiogram with Doppler and color Doppler. Other Information Quality : Good INDICATION Hypertension/HCVD Elevated Troponin, History of CHF 2D DIMENSIONS Left Atrium(2D)3.5 (1.6-4.0cm)IVSd1.5 (0.7-1.1cm) Aortic Root(2D)2.4 (2.0-3.7cm)LVDd3.0 (3.9-5.9cm) LVOT Diameter1.9 (1.8-2.4cm)PWd1.5 (0.7-1.1cm) LVDs2.2 (2.5-4.0cm)FS (%) 25.7 % SV17.8 mlLVEF(%)60.0 (>50%) Aortic Valve AoV Peak Brett.187.4cm/sAoV VTI35.3cm AO Peak GR.14.0mmHgLVOT VTI 24.87cm AO Mean GR.8mmHgAVA (VTI)1.90cm2 Mitral Valve MV E Dyeeibpv89.2cm/sMV DECEL [id number] MV A Ymdyjetj75.9cm/sE/A Ratio0.9 TDI Lateral E' P. V5.08cm/sMedial E' P. V3.93cm/s E/Lateral E'17.4E/Medial E'22.4 Tricuspid Valve TR P. [id number]/sRAP [id number] TR Peak Gr.[id number] Pulmonary Vein S1 Rzftlyfm99.6cm/sS2 Zqbqayip69.91cm/s D2 Dpluaamc88.9cm/s LEFT VENTRICLE The left ventricle is normal size. There is moderate to severe concentric left ventricular hypertroph y. The Ejection Fraction is 55-60%. There is normal LV segmental wall motion. Transmitral Doppler meenakshi w pattern is Grade I-abnormal relaxation pattern. RIGHT VENTRICLE The right ventricle is normal size. The right ventricular systolic function is normal. ATRIA The left atrium size is normal. The right atrium size is normal. The interatrial septum is intact wit h no evidence for an atrial septal defect or patent foramen ovale as noted on 2-D or Doppler imaging. AORTIC VALVE The aortic valve is moderately thickened but opens well. Doppler and Color Flow revealed no significa nt aortic regurgitation. There is no significant aortic valvular stenosis. MITRAL VALVE The mitral valve is calcified but opens well. Mitral annular calcification is mild. There is no evide nce of mitral valve prolapse. There is no mitral valve stenosis. Doppler and Color-flow revealed trac e mitral regurgitation. TRICUSPID VALVE The tricuspid valve is normal in structure and function. Doppler and Color Flow revealed trace tricus pid regurgitation. There is mild pulmonary hypertension. The PA pressure was estimated at 33 mmHg. Th ere is no tricuspid valve stenosis. PULMONIC VALVE The pulmonic valve is not well visualized. Doppler and Color Flow revealed trace to mild pulmonic purnima vular regurgitation. There is no pulmonic valvular stenosis. GREAT VESSELS The aortic root is normal in size. The ascending aorta is normal in size. The IVC is normal in size a nd collapses >50% with inspiration. PERICARDIAL EFFUSION There is no evidence of significant pericardial effusion. Critical Notification Critical Value: No <Conclusion> There is moderate to severe concentric left ventricular hypertrophy. The Ejection Fraction is 55-60%. There is normal LV segmental wall motion. Signed by : Kamaljit Chaparro, Electronically Approved : 05/31/2019 11:49:13
--- NOTE | 2019-05-31 12:30 | PDOC2 ---
CONSULT Date of Consult Date of Consult DATE: 05/31/19 TIME: 12:28 Reason for Consult Reason for Consult: N/V/D Current Problem List Problem List Problems Medical Problems: (1) Abdominal pain Status: Acute (2) Elevated troponin Status: Acute (3) Nausea & vomiting Status: Acute Current Medications Current Medications Current Medications Ondansetron HCl (Zofran) 4 mg 1X ONCE IV Last administered on 05/30/19at 23:07; Start 05/30/19 at 22:30; Stop 05/30/19 at 22:31; Status DC Famotidine (Pepcid Vial) 20 mg 1X ONCE IVP Last administered on 05/30/19at 23:07; Start 05/30/19 at 22:30; Stop 05/30/19 at 22:31; Status DC Sodium Chloride 1,000 ml @ 1,000 mls/hr 1X ONCE IV Last administered on 05/30/19at 23:08; Start 05/30/19 at 22:30; Stop 05/30/19 at 23:29; Status DC Iohexol (Omnipaque 300 Mg/ml) 60 ml 1X ONCE IV Last administered on 05/30/19at 23:46; Start 05/30/19 at 23:45; Stop 05/30/19 at 23:46; Status DC Info (CONTRAST GIVEN -- Rx MONITORING) 1 each PRN DAILY PRN MC SEE COMMENTS; Start 05/30/19 at 23:45; Stop 06/01/19 at 23:44 Ondansetron HCl (Zofran) 4 mg PRN Q8HRS PRN IV NAUSEA/VOMITING; Start 05/31/19 at 00:00; Stop 05/31/19 at 23:59 Aspirin (Pankaj Aspirin) 325 mg 1X ONCE PO Last administered on 05/31/19at 00:39; Start 05/31/19 at 00:45; Stop 05/31/19 at 00:46; Status DC Active Scripts Active Tramadol Hcl 50 Mg Tablet 0.5 Tab PO PRN Q6HRS Reported [potassium cholride] 30 Meq PO DAILY Tylenol (Acetaminophen) 325 Mg Tablet 1-2 Tab PO QID PRN Furosemide 40 Mg Tablet 1 Tab PO DAILY Aspir-Low (Aspirin) 81 Mg Tablet.dr 1 Tab PO DAILY Levothyroxine Sodium 25 Mcg Tablet 1 Tab PO DAILY Allergies Allergies: Coded Allergies: Penicillins (Unverified Allergy, Intermediate, 06/21/17) Sulfa (Sulfonamide Antibiotics) (Unverified Allergy, Intermediate, 06/21/17) codeine (Unverified Allergy, Intermediate, 06/21/17) morphine (Unverified Allergy, Intermediate, 06/21/17) Vitals VITALS Vital Signs Date Time Temp Pulse Resp B/P (MAP) Pulse Ox O2 Delivery O2 Flow Rate FiO2 05/31/19 10:47 98.5 65 16 143/67 (92) 97 Room Air 98.5 Labs Labs Laboratory Tests Test 05/30/19 22:59 05/31/19 03:30 05/31/19 06:17 White Blood Count 5.4 x10^3/uL (4.0-11.0) Red Blood Count 4.46 x10^6/uL (3.50-5.40) Hemoglobin 13.1 g/dL (12.0-15.5) Hematocrit 39.1 % (36.0-47.0) Mean Corpuscular Volume 88 fL (79-100) Mean Corpuscular Hemoglobin 29 pg (25-35) Mean Corpuscular Hemoglobin Concent 34 g/dL (31-37) Red Cell Distribution Width 14.7 % (11.5-14.5) Platelet Count 171 x10^3/uL (140-400) Neutrophils (%) (Auto) 64 % (31-73) Lymphocytes (%) (Auto) 23 % (24-48) Monocytes (%) (Auto) 11 % (0-9) Eosinophils (%) (Auto) 1 % (0-3) Basophils (%) (Auto) 1 % (0-3) Neutrophils # (Auto) 3.5 x10^3/uL (1.8-7.7) Lymphocytes # (Auto) 1.2 x10^3/uL (1.0-4.8) Monocytes # (Auto) 0.6 x10^3/uL (0.0-1.1) Eosinophils # (Auto) 0.1 x10^3/uL (0.0-0.7) Basophils # (Auto) 0.1 x10^3/uL (0.0-0.2) Prothrombin Time 13.7 SEC (11.7-14.0) Prothromb Time International Ratio 1.1 (0.8-1.1) Activated Partial Thromboplast Time 26 SEC (24-38) Sodium Level 141 mmol/L (136-145) Potassium Level 3.4 mmol/L (3.5-5.1) Chloride Level 102 mmol/L (98-107) Carbon Dioxide Level 34 mmol/L (21-32) Anion Gap 5 (6-14) Blood Urea Nitrogen 18 mg/dL (7-20) Creatinine 1.2 mg/dL (0.6-1.0) Estimated GFR (Cockcroft-Gault) 51.9 BUN/Creatinine Ratio 15 (6-20) Glucose Level 110 mg/dL (70-99) Calcium Level 9.0 mg/dL (8.5-10.1) Magnesium Level 2.4 mg/dL (1.8-2.4) Total Bilirubin 0.6 mg/dL (0.2-1.0) Aspartate Amino Transf (AST/SGOT) 22 U/L (15-37) Alanine Aminotransferase (ALT/SGPT) 14 U/L (14-59) Alkaline Phosphatase 71 U/L (46-116) Creatine Kinase 141 U/L (26-192) Creatine Kinase MB (Mass) 3.9 ng/mL (0.0-3.6) Creatine Kinase MB Relative Index 2.8 % (0-4) Troponin I Quantitative 0.155 ng/mL (0.000-0.055) 0.168 ng/mL (0.000-0.055) 0.165 ng/mL (0.000-0.055) Total Protein 7.6 g/dL (6.4-8.2) Albumin 3.5 g/dL (3.4-5.0) Albumin/Globulin Ratio 0.9 (1.0-1.7) Lipase 151 U/L (73-393) Triglycerides Level 67 mg/dL (0-150) Cholesterol Level 245 mg/dL (0-200) LDL Cholesterol, Calculated 153 mg/dL (0-100) VLDL Cholesterol, Calculated 13 mg/dL (0-40) Non-HDL Cholesterol Calculated 166 mg/dL (0-129) HDL Cholesterol 79 mg/dL (40-60) Cholesterol/HDL Ratio 3.1 Laboratory Tests Test 05/30/19 22:59 05/31/19 03:30 05/31/19 06:17 White Blood Count 5.4 x10^3/uL (4.0-11.0) Red Blood Count 4.46 x10^6/uL (3.50-5.40) Hemoglobin 13.1 g/dL (12.0-15.5) Hematocrit 39.1 % (36.0-47.0) Mean Corpuscular Volume 88 fL (79-100) Mean Corpuscular Hemoglobin 29 pg (25-35) Mean Corpuscular Hemoglobin Concent 34 g/dL (31-37) Red Cell Distribution Width 14.7 % (11.5-14.5) Platelet Count 171 x10^3/uL (140-400) Neutrophils (%) (Auto) 64 % (31-73) Lymphocytes (%) (Auto) 23 % (24-48) Monocytes (%) (Auto) 11 % (0-9) Eosinophils (%) (Auto) 1 % (0-3) Basophils (%) (Auto) 1 % (0-3) Neutrophils # (Auto) 3.5 x10^3/uL (1.8-7.7) Lymphocytes # (Auto) 1.2 x10^3/uL (1.0-4.8) Monocytes # (Auto) 0.6 x10^3/uL (0.0-1.1) Eosinophils # (Auto) 0.1 x10^3/uL (0.0-0.7) Basophils # (Auto) 0.1 x10^3/uL (0.0-0.2) Prothrombin Time 13.7 SEC (11.7-14.0) Prothromb Time International Ratio 1.1 (0.8-1.1) Activated Partial Thromboplast Time 26 SEC (24-38) Sodium Level 141 mmol/L (136-145) Potassium Level 3.4 mmol/L (3.5-5.1) Chloride Level 102 mmol/L (98-107) Carbon Dioxide Level 34 mmol/L (21-32) Anion Gap 5 (6-14) Blood Urea Nitrogen 18 mg/dL (7-20) Creatinine 1.2 mg/dL (0.6-1.0) Estimated GFR (Cockcroft-Gault) 51.9 BUN/Creatinine Ratio 15 (6-20) Glucose Level 110 mg/dL (70-99) Calcium Level 9.0 mg/dL (8.5-10.1) Magnesium Level 2.4 mg/dL (1.8-2.4) Total Bilirubin 0.6 mg/dL (0.2-1.0) Aspartate Amino Transf (AST/SGOT) 22 U/L (15-37) Alanine Aminotransferase (ALT/SGPT) 14 U/L (14-59) Alkaline Phosphatase 71 U/L (46-116) Creatine Kinase 141 U/L (26-192) Creatine Kinase MB (Mass) 3.9 ng/mL (0.0-3.6) Creatine Kinase MB Relative Index 2.8 % (0-4) Troponin I Quantitative 0.155 ng/mL (0.000-0.055) 0.168 ng/mL (0.000-0.055) 0.165 ng/mL (0.000-0.055) Total Protein 7.6 g/dL (6.4-8.2) Albumin 3.5 g/dL (3.4-5.0) Albumin/Globulin Ratio 0.9 (1.0-1.7) Lipase 151 U/L (73-393) Triglycerides Level 67 mg/dL (0-150) Cholesterol Level 245 mg/dL (0-200) LDL Cholesterol, Calculated 153 mg/dL (0-100) VLDL Cholesterol, Calculated 13 mg/dL (0-40) Non-HDL Cholesterol Calculated 166 mg/dL (0-129) HDL Cholesterol 79 mg/dL (40-60) Cholesterol/HDL Ratio 3.1 Assessment/Plan Assessment/Plan Abd pain- with N/V/D, s/p melissa and appendectomy, Most likely secondary to infectious enteritis. SBO, PUD, mesenteric ischemia, and/or occult malignancy in differential. plan iv fluids stool studies consider endoscopy if no improvement with above. Full note dictated HEENA BOONE MD May 31, 2019 12:30
--- NOTE | 2019-05-31 12:56 | CONS ---
DATE OF CONSULTATION: 05/31/2019 REASON FOR CONSULTATION: Nausea, vomiting, diarrhea, abdominal pain. HISTORY OF PRESENT ILLNESS: An 83-year-old -[place] female with past medical history significant for hyperlipidemia, hypertension, hypothyroidism, sarcoidosis, breast cancer, history of osteoarthrosis, status post cholecystectomy, appendectomy, tonsillectomy, was admitted to [facility] with worsening diffuse abdominal pain, more so on the left lower quadrant than elsewhere, has been present for approximately a week, has been associated with nausea, vomiting and loose stools. States she has been evaluated for 2-3 times per day despite limiting her p.o. intake. Subsequent imaging studies were unrevealing for obstruction, did reveal post-cholecystectomy state and some mild haziness in the hepatic flexure. The patient otherwise denies any bleeding, denies any change in bowel habits, lives with her spouse; otherwise, has been in good health. PAST MEDICAL HISTORY: Significant for hypertension, hypothyroidism, hyperlipidemia, breast cancer, status post mastectomy, cholecystectomy, tonsillectomy, appendectomy and sarcoidosis. ALLERGIES: PENICILLIN, SULFA, CODEINE AND MORPHINE. MEDICATIONS: At present time include Zofran. FAMILY AND SOCIAL HISTORY: She is retired. Does not drink or smoke. REVIEW OF SYSTEMS: Per records. PHYSICAL EXAMINATION: GENERAL: Reveals a thin -[place] female who is alert, cooperative, in mild distress. VITAL SIGNS: Temperature is 96.5, pulse 65, respiratory rate 16, blood pressure is 143/67. HEENT: Normocephalic, atraumatic head. Pupils and extraocular muscles are not tested. Sclerae anicteric. NECK: Supple. LUNGS: Clear. CARDIOVASCULAR: Reveals an S1, S2 without S3, S4 or appreciable murmur. ABDOMEN: Reveals a soft abdomen, normal bowel sounds, without appreciable hepatosplenomegaly with left lower quadrant tenderness to deep palpation. Multiple surgical incisions are noted. EXTREMITIES: Reveals no cyanosis, clubbing, edema. LABORATORY STUDIES: Hemoglobin 13.1, hematocrit 39.1, white count 5.4, platelet count 171,000. INR is 1.1. Sodium is 141, glucose is 110. Total protein 7.6, albumin 3.5, calcium is 9.0, BUN 18, creatinine 1.2, total bilirubin 0.6, alk phos 71, ALT 14, AST 22, potassium 3.4, chloride 102, bicarb is 34, lipase is 151, magnesium is 2.4. CT scans as stated. IMPRESSION: Nausea, vomiting, diarrhea, status post appendectomy and cholecystectomy, most likely secondary to self-limited infectious enteritis. Differential does include bowel obstruction, colon cancer, peptic ulcer disease, ileus and infectious colitis. PLAN: We will therefore recommend IV hydration, advance diet as tolerated. Stool studies. Consider endoscopy if there is no improvement with medical therapy. HEENA BOONE MD DR: BRUNILDA/brittni JOB#: [id number] / [id number] KATRIN Castellano MD
[2019-05-31] MEDS: IV 1/2 NORMAL SALINE 1,000 ML IV SCH (13:13)
[2019-05-31] MEDS ORDERED: POTASSIUM CHLORIDE 20 MEQ TABLET.ER. PO ONE ×2 (13:18→13:30)
[2019-05-31] MEDS ORDERED: ACETAMINOPHEN 325 MG TABLET. PO PRN (13:30)
[2019-05-31] MEDS ORDERED: traMADol 50 MG TABLET PO PRN (13:30)
[2019-05-31] MEDS: ASPIRIN ENTERIC COATED 81 MG TABLET.DR. PO SCH (14:03)
[2019-05-31] MEDS: LEVOTHYROXINE 25 MCG TABLET. PO SCH (14:03)
[2019-05-31] MEDS ORDERED: POTASSIUM BICARB 20 MEQ EFFERVESCENT TABLET. PO ONE (14:15)
[2019-06-01] MEDS: IV 1/2 NORMAL SALINE 1,000 ML IV SCH ×2 (02:14→15:25)
[2019-06-01 03:47] VITALS: BP 165/76
[2019-06-01] MEDS: LEVOTHYROXINE 25 MCG TABLET. PO SCH (06:59)
[2019-06-01 07:00] VITALS: BP 142/67
[2019-06-01] MEDS: ASPIRIN ENTERIC COATED 81 MG TABLET.DR. PO SCH (08:08)
--- NOTE | 2019-06-01 08:31 | PDOC ---
PROGRESS NOTES Chief Complaint Chief Complaint A/P: N/V/D - likely gastroenteritis. Will consult GI, ADAT Elevated troponin - likely demand ischemia from acute GI process. Trended troponins, consulted cardiology Hypothyroidism - cont meds H/o breast cancer - in remission Sarcoidosis - stable KYMBERLY - likely vasomotor nephropathy from GI losses Hypokalemia - replace oral, likely GI loss HTN - cont meds HLD - cont meds FEN - General diet PPX - lovenox FULL CODE Inpatient for elevated troponin, unable to take po History of Present Illness History of Present Illness Ms Coulter is an 83-year-old F w/ PMHx hyperlipidemia, hypertension, hypothyroidism, sarcoidosis, breast cancer, osteoarthrosis who p/w diffuse abdominal pain, worse in left lower quadrant that has been progressive for the past week. She also notes nausea, vomiting and loose stools. CT abdomen shows no obstructive process. Cr 1.2, K3.4 and troponin elevated at 0.155. Admitted for further care with GI and Cardiology consultation. Echo There is moderate to severe concentric left ventricular hypertrophy. The Ejection Fraction is 55-60%. There is normal LV segmental wall motion. Feeling better, no further vomiting or diarrhea. Has tried liquid diet, which went well. No CP or SOB. Vitals Vitals Vital Signs Date Time Temp Pulse Resp B/P (MAP) Pulse Ox O2 Delivery O2 Flow Rate FiO2 06/01/19 07:00 98.4 64 16 142/67 (92) 97 Room Air 98.4 Physical Exam General: Alert, Oriented X3, Cooperative, mild distress Heart: Regular rate, Normal S1, Normal S2 Lungs: Clear Abdomen: Normal bowel sounds, Soft, No hepatosplenomegaly, No masses, Other (LLQ tender) Extremities: No clubbing, No cyanosis, No edema, Normal pulses, No tenderness/swelling Skin: No rashes, No breakdown, No significant lesion Assessment and Plan Assessmemt and Plan Problems Medical Problems: (1) Abdominal pain Status: Acute (2) Elevated troponin Status: Acute (3) Nausea & vomiting Status: Acute Comment Review of Relevant I have reviewed the following items harleen (where applicable) has been applied. Labs Laboratory Tests Test 05/30/19 22:59 05/31/19 03:30 05/31/19 06:17 White Blood Count 5.4 x10^3/uL (4.0-11.0) Red Blood Count 4.46 x10^6/uL (3.50-5.40) Hemoglobin 13.1 g/dL (12.0-15.5) Hematocrit 39.1 % (36.0-47.0) Mean Corpuscular Volume 88 fL (79-100) Mean Corpuscular Hemoglobin 29 pg (25-35) Mean Corpuscular Hemoglobin Concent 34 g/dL (31-37) Red Cell Distribution Width 14.7 % (11.5-14.5) Platelet Count 171 x10^3/uL (140-400) Neutrophils (%) (Auto) 64 % (31-73) Lymphocytes (%) (Auto) 23 % (24-48) Monocytes (%) (Auto) 11 % (0-9) Eosinophils (%) (Auto) 1 % (0-3) Basophils (%) (Auto) 1 % (0-3) Neutrophils # (Auto) 3.5 x10^3/uL (1.8-7.7) Lymphocytes # (Auto) 1.2 x10^3/uL (1.0-4.8) Monocytes # (Auto) 0.6 x10^3/uL (0.0-1.1) Eosinophils # (Auto) 0.1 x10^3/uL (0.0-0.7) Basophils # (Auto) 0.1 x10^3/uL (0.0-0.2) Prothrombin Time 13.7 SEC (11.7-14.0) Prothromb Time International Ratio 1.1 (0.8-1.1) Activated Partial Thromboplast Time 26 SEC (24-38) Sodium Level 141 mmol/L (136-145) Potassium Level 3.4 mmol/L (3.5-5.1) Chloride Level 102 mmol/L (98-107) Carbon Dioxide Level 34 mmol/L (21-32) Anion Gap 5 (6-14) Blood Urea Nitrogen 18 mg/dL (7-20) Creatinine 1.2 mg/dL (0.6-1.0) Estimated GFR (Cockcroft-Gault) 51.9 BUN/Creatinine Ratio 15 (6-20) Glucose Level 110 mg/dL (70-99) Calcium Level 9.0 mg/dL (8.5-10.1) Magnesium Level 2.4 mg/dL (1.8-2.4) Total Bilirubin 0.6 mg/dL (0.2-1.0) Aspartate Amino Transf (AST/SGOT) 22 U/L (15-37) Alanine Aminotransferase (ALT/SGPT) 14 U/L (14-59) Alkaline Phosphatase 71 U/L (46-116) Creatine Kinase 141 U/L (26-192) Creatine Kinase MB (Mass) 3.9 ng/mL (0.0-3.6) Creatine Kinase MB Relative Index 2.8 % (0-4) Troponin I Quantitative 0.155 ng/mL (0.000-0.055) 0.168 ng/mL (0.000-0.055) 0.165 ng/mL (0.000-0.055) Total Protein 7.6 g/dL (6.4-8.2) Albumin 3.5 g/dL (3.4-5.0) Albumin/Globulin Ratio 0.9 (1.0-1.7) Lipase 151 U/L (73-393) Triglycerides Level 67 mg/dL (0-150) Cholesterol Level 245 mg/dL (0-200) LDL Cholesterol, Calculated 153 mg/dL (0-100) VLDL Cholesterol, Calculated 13 mg/dL (0-40) Non-HDL Cholesterol Calculated 166 mg/dL (0-129) HDL Cholesterol 79 mg/dL (40-60) Cholesterol/HDL Ratio 3.1 Medications Current Medications Ondansetron HCl (Zofran) 4 mg 1X ONCE IV Last administered on 05/30/19at 23:07; Start 05/30/19 at 22:30; Stop 05/30/19 at 22:31; Status DC Famotidine (Pepcid Vial) 20 mg 1X ONCE IVP Last administered on 05/30/19at 23:07; Start 05/30/19 at 22:30; Stop 05/30/19 at 22:31; Status DC Sodium Chloride 1,000 ml @ 1,000 mls/hr 1X ONCE IV Last administered on 05/30/19at 23:08; Start 05/30/19 at 22:30; Stop 05/30/19 at 23:29; Status DC Iohexol (Omnipaque 300 Mg/ml) 60 ml 1X ONCE IV Last administered on 05/30/19at 23:46; Start 05/30/19 at 23:45; Stop 05/30/19 at 23:46; Status DC Info (CONTRAST GIVEN -- Rx MONITORING) 1 each PRN DAILY PRN MC SEE COMMENTS; Start 05/30/19 at 23:45; Stop 06/01/19 at 23:44 Ondansetron HCl (Zofran) 4 mg PRN Q8HRS PRN IV NAUSEA/VOMITING; Start 05/31/19 at 00:00; Stop 05/31/19 at 23:59; Status DC Aspirin (Pankaj Aspirin) 325 mg 1X ONCE PO Last administered on 05/31/19at 00:39; Start 05/31/19 at 00:45; Stop 05/31/19 at 00:46; Status DC Sodium Chloride 1,000 ml @ 75 mls/hr [id number] IV Last administered on 06/01/19at 02:14; Start 05/31/19 at 12:45 Acetaminophen (Tylenol) 650 mg PRN QID PRN PO PAIN; Start 05/31/19 at 13:30 Aspirin (Ecotrin) 81 mg DAILY PO Last administered on 06/01/19at 08:08; Start 05/31/19 at 14:00 Furosemide (Lasix) 40 mg DAILY PO ; Start 06/01/19 at 09:00; Stop 05/31/19 at 13:22; Status DC Levothyroxine Sodium (Synthroid) 25 mcg DAILY07 PO Last administered on 06/01/19at 06:59; Start 05/31/19 at 14:00 Tramadol HCl (Ultram) 25 mg PRN Q6HRS PRN PO PAIN; Start 05/31/19 at 13:30 Potassium Chloride (Klor-Con) 20 meq 1X ONCE PO ; Start 05/31/19 at 13:30; Stop 05/31/19 at 13:31; Status Cancel Potassium Chloride (Klor-Con) 20 meq ONCE ONCE PO ; Start 05/31/19 at 13:18; Stop 05/31/19 at 13:19; Status Cancel Potassium Bicarbonate (Potassium Effervescent Tablet) 40 meq 1X ONCE PO Last administered on 05/31/19at 14:27; Start 05/31/19 at 14:15; Stop 05/31/19 at 14:16; Status DC Active Scripts Active Tramadol Hcl 50 Mg Tablet 0.5 Tab PO PRN Q6HRS Reported [potassium cholride] 30 Meq PO DAILY Tylenol (Acetaminophen) 325 Mg Tablet 1-2 Tab PO QID PRN Furosemide 40 Mg Tablet 1 Tab PO DAILY Aspir-Low (Aspirin) 81 Mg Tablet.dr 1 Tab PO DAILY Levothyroxine Sodium 25 Mcg Tablet 1 Tab PO DAILY Vitals/I & O Vital Sign - Last 24 Hours 05/31/19 05/31/19 05/31/19 05/31/19 10:47 14:03 19:20 19:30 Temp 98.5 98.4 98.0 98.5 98.4 98.0 Pulse 65 72 37 Resp 16 16 17 B/P (MAP) 143/67 (92) 151/81 (104) 132/70 (90) Pulse Ox 97 95 97 O2 Delivery Room Air Room Air Room Air Room Air 05/31/19 06/01/19 06/01/19 23:49 03:47 07:00 Temp 97.9 97.9 98.4 97.9 97.9 98.4 Pulse 62 64 64 Resp 18 18 16 B/P (MAP) 140/66 (90) 165/76 (105) 142/67 (92) Pulse Ox 95 98 97 O2 Delivery Room Air Room Air Room Air Intake and Output 05/31/19 05/31/19 06/01/19 15:00 23:00 07:00 Intake Total 400 ml 100 ml Output Total 780 ml 500 ml Balance -380 ml -400 ml KATRIN LOPEZ MD Jun 01, 2019 08:31
[2019-06-01] MEDS ORDERED: FUROSEMIDE 40 MG TABLET. PO SCH (09:00)
[2019-06-01 09:55] LABS: ALBUMIN 3.2 g/dL (3.4-5.0); ALBUMIN/GLOBULIN RATIO 0.9 (1.0-1.7); CALCIUM 8.8 mg/dL (8.5-10.1); CREATININE 0.8 mg/dL (0.6-1.0); GFR 82.9; TOTAL BILIRUBIN 0.7 mg/dL (0.2-1.0); TOTAL PROTEIN 6.8 g/dL (6.4-8.2)
[2019-06-01 10:58] VITALS: BP 110/57
--- NOTE | 2019-06-01 12:52 | PDOC ---
G I PROGRESS NOTE Subjective Eating. Denies N, V or diarrhea. Physical Exam Lungs clear. RRR Abdomen soft, not tender or distended. Review of Relevant I have reviewed the following items harleen (where applicable) has been applied. Labs Laboratory Tests Test 05/30/19 22:59 05/31/19 03:30 05/31/19 06:17 06/01/19 08:35 White Blood Count 5.4 x10^3/uL (4.0-11.0) Red Blood Count 4.46 x10^6/uL (3.50-5.40) Hemoglobin 13.1 g/dL (12.0-15.5) Hematocrit 39.1 % (36.0-47.0) Mean Corpuscular Volume 88 fL (79-100) Mean Corpuscular Hemoglobin 29 pg (25-35) Mean Corpuscular Hemoglobin Concent 34 g/dL (31-37) Red Cell Distribution Width 14.7 % (11.5-14.5) Platelet Count 171 x10^3/uL (140-400) Neutrophils (%) (Auto) 64 % (31-73) Lymphocytes (%) (Auto) 23 % (24-48) Monocytes (%) (Auto) 11 % (0-9) Eosinophils (%) (Auto) 1 % (0-3) Basophils (%) (Auto) 1 % (0-3) Neutrophils # (Auto) 3.5 x10^3/uL (1.8-7.7) Lymphocytes # (Auto) 1.2 x10^3/uL (1.0-4.8) Monocytes # (Auto) 0.6 x10^3/uL (0.0-1.1) Eosinophils # (Auto) 0.1 x10^3/uL (0.0-0.7) Basophils # (Auto) 0.1 x10^3/uL (0.0-0.2) Prothrombin Time 13.7 SEC (11.7-14.0) Prothromb Time International Ratio 1.1 (0.8-1.1) Activated Partial Thromboplast Time 26 SEC (24-38) Sodium Level 141 mmol/L (136-145) 140 mmol/L (136-145) Potassium Level 3.4 mmol/L (3.5-5.1) 4.0 mmol/L (3.5-5.1) Chloride Level 102 mmol/L (98-107) 103 mmol/L (98-107) Carbon Dioxide Level 34 mmol/L (21-32) 29 mmol/L (21-32) Anion Gap 5 (6-14) 8 (6-14) Blood Urea Nitrogen 18 mg/dL (7-20) 7 mg/dL (7-20) Creatinine 1.2 mg/dL (0.6-1.0) 0.8 mg/dL (0.6-1.0) Estimated GFR (Cockcroft-Gault) 51.9 82.9 BUN/Creatinine Ratio 15 (6-20) 9 (6-20) Glucose Level 110 mg/dL (70-99) 78 mg/dL (70-99) Calcium Level 9.0 mg/dL (8.5-10.1) 8.8 mg/dL (8.5-10.1) Magnesium Level 2.4 mg/dL (1.8-2.4) Total Bilirubin 0.6 mg/dL (0.2-1.0) 0.7 mg/dL (0.2-1.0) Aspartate Amino Transf (AST/SGOT) 22 U/L (15-37) 25 U/L (15-37) Alanine Aminotransferase (ALT/SGPT) 14 U/L (14-59) 14 U/L (14-59) Alkaline Phosphatase 71 U/L (46-116) 66 U/L (46-116) Creatine Kinase 141 U/L (26-192) Creatine Kinase MB (Mass) 3.9 ng/mL (0.0-3.6) Creatine Kinase MB Relative Index 2.8 % (0-4) Troponin I Quantitative 0.155 ng/mL (0.000-0.055) 0.168 ng/mL (0.000-0.055) 0.165 ng/mL (0.000-0.055) 0.094 ng/mL (0.000-0.055) Total Protein 7.6 g/dL (6.4-8.2) 6.8 g/dL (6.4-8.2) Albumin 3.5 g/dL (3.4-5.0) 3.2 g/dL (3.4-5.0) Albumin/Globulin Ratio 0.9 (1.0-1.7) 0.9 (1.0-1.7) Lipase 151 U/L (73-393) Triglycerides Level 67 mg/dL (0-150) Cholesterol Level 245 mg/dL (0-200) LDL Cholesterol, Calculated 153 mg/dL (0-100) VLDL Cholesterol, Calculated 13 mg/dL (0-40) Non-HDL Cholesterol Calculated 166 mg/dL (0-129) HDL Cholesterol 79 mg/dL (40-60) Cholesterol/HDL Ratio 3.1 Laboratory Tests Test 06/01/19 08:35 Sodium Level 140 mmol/L (136-145) Potassium Level 4.0 mmol/L (3.5-5.1) Chloride Level 103 mmol/L (98-107) Carbon Dioxide Level 29 mmol/L (21-32) Anion Gap 8 (6-14) Blood Urea Nitrogen 7 mg/dL (7-20) Creatinine 0.8 mg/dL (0.6-1.0) Estimated GFR (Cockcroft-Gault) 82.9 BUN/Creatinine Ratio 9 (6-20) Glucose Level 78 mg/dL (70-99) Calcium Level 8.8 mg/dL (8.5-10.1) Total Bilirubin 0.7 mg/dL (0.2-1.0) Aspartate Amino Transf (AST/SGOT) 25 U/L (15-37) Alanine Aminotransferase (ALT/SGPT) 14 U/L (14-59) Alkaline Phosphatase 66 U/L (46-116) Troponin I Quantitative 0.094 ng/mL (0.000-0.055) Total Protein 6.8 g/dL (6.4-8.2) Albumin 3.2 g/dL (3.4-5.0) Albumin/Globulin Ratio 0.9 (1.0-1.7) Vitals/I & O Vital Sign - Last 24 Hours 05/31/19 05/31/19 05/31/19 05/31/19 14:03 19:20 19:30 23:49 Temp 98.4 98.0 97.9 98.4 98.0 97.9 Pulse 72 37 62 Resp 16 17 18 B/P (MAP) 151/81 (104) 132/70 (90) 140/66 (90) Pulse Ox 95 97 95 O2 Delivery Room Air Room Air Room Air Room Air 06/01/19 06/01/19 06/01/19 06/01/19 03:47 07:00 08:00 10:58 Temp 97.9 98.4 98.5 97.9 98.4 98.5 Pulse 64 64 69 Resp 18 16 16 B/P (MAP) 165/76 (105) 142/67 (92) 110/57 (74) Pulse Ox 98 97 96 O2 Delivery Room Air Room Air Room Air Room Air Intake and Output 05/31/19 05/31/19 06/01/19 15:00 23:00 07:00 Intake Total 400 ml 100 ml Output Total 780 ml 500 ml Balance -380 ml -400 ml Problem List Problems Medical Problems: (1) Abdominal pain Status: Acute (2) Elevated troponin Status: Acute (3) Nausea & vomiting Status: Acute Assessment Gastroenteritis, viral? Improved. Plan of Care: Continue current Tx, Mgmt FREDI DIANE MD Jun 01, 2019 12:52
[2019-06-01 14:53] VITALS: BP 109/57
[2019-06-01 19:40] VITALS: BP 128/62
[2019-06-01 23:35] VITALS: BP 131/86
[2019-06-02 03:40] VITALS: BP 145/68
[2019-06-02] MEDS: IV 1/2 NORMAL SALINE 1,000 ML IV SCH (04:45)
[2019-06-02 07:00] VITALS: BP 147/71
[2019-06-02] MEDS: ASPIRIN ENTERIC COATED 81 MG TABLET.DR. PO SCH (07:45)
[2019-06-02] MEDS: LEVOTHYROXINE 25 MCG TABLET. PO SCH (07:45)
[2019-06-02 11:00] VITALS: BP 159/71
[2019-06-02] MEDS ORDERED: ONDA4TAB7 PO (13:06)
--- NOTE | 2019-06-02 13:07 | PDOC ---
PROGRESS NOTES Chief Complaint Chief Complaint A/P: N/V/D - likely gastroenteritis. Will consult GI, ADAT Elevated troponin - likely demand ischemia from acute GI process. Trended troponins, consulted cardiology Hypothyroidism - cont meds H/o breast cancer - in remission Sarcoidosis - stable KYMBERLY - likely vasomotor nephropathy from GI losses Hypokalemia - replace oral, likely GI loss HTN - cont meds HLD - cont meds FEN - General diet PPX - lovenox FULL CODE Inpatient for elevated troponin, unable to take po History of Present Illness History of Present Illness Ms Coulter is an 83-year-old F w/ PMHx hyperlipidemia, hypertension, hypothyroidism, sarcoidosis, breast cancer, osteoarthrosis who p/w diffuse abdominal pain, worse in left lower quadrant that has been progressive for the past week. She also notes nausea, vomiting and loose stools. CT abdomen shows no obstructive process. Cr 1.2, K3.4 and troponin elevated at 0.155. Admitted for further care with GI and Cardiology consultation. Echo There is moderate to severe concentric left ventricular hypertrophy. The Ejection Fraction is 55-60%. There is normal LV segmental wall motion. Feeling better, no further vomiting or diarrhea. Has tried liquid diet, which went well on 06/01, now advanced to general diet x2 meals with no further symptoms. No CP or SOB. Vitals Vitals Vital Signs Date Time Temp Pulse Resp B/P (MAP) Pulse Ox O2 Delivery O2 Flow Rate FiO2 06/02/19 11:00 97.9 62 18 159/71 (100) 98 Room Air 97.9 Physical Exam General: Alert, Oriented X3, Cooperative, mild distress Heart: Regular rate, Normal S1, Normal S2 Lungs: Clear Abdomen: Normal bowel sounds, Soft, No hepatosplenomegaly, No masses, Other (LLQ tender) Extremities: No clubbing, No cyanosis, No edema, Normal pulses, No tenderness/swelling Skin: No rashes, No breakdown, No significant lesion Assessment and Plan Assessmemt and Plan Problems Medical Problems: (1) Abdominal pain Status: Acute (2) Elevated troponin Status: Acute (3) Nausea & vomiting Status: Acute Comment Review of Relevant I have reviewed the following items harleen (where applicable) has been applied. Labs Laboratory Tests Test 06/01/19 08:35 Sodium Level 140 mmol/L (136-145) Potassium Level 4.0 mmol/L (3.5-5.1) Chloride Level 103 mmol/L (98-107) Carbon Dioxide Level 29 mmol/L (21-32) Anion Gap 8 (6-14) Blood Urea Nitrogen 7 mg/dL (7-20) Creatinine 0.8 mg/dL (0.6-1.0) Estimated GFR (Cockcroft-Gault) 82.9 BUN/Creatinine Ratio 9 (6-20) Glucose Level 78 mg/dL (70-99) Calcium Level 8.8 mg/dL (8.5-10.1) Total Bilirubin 0.7 mg/dL (0.2-1.0) Aspartate Amino Transf (AST/SGOT) 25 U/L (15-37) Alanine Aminotransferase (ALT/SGPT) 14 U/L (14-59) Alkaline Phosphatase 66 U/L (46-116) Troponin I Quantitative 0.094 ng/mL (0.000-0.055) Total Protein 6.8 g/dL (6.4-8.2) Albumin 3.2 g/dL (3.4-5.0) Albumin/Globulin Ratio 0.9 (1.0-1.7) Medications Current Medications Ondansetron HCl (Zofran) 4 mg 1X ONCE IV Last administered on 05/30/19at 23:07; Start 05/30/19 at 22:30; Stop 05/30/19 at 22:31; Status DC Famotidine (Pepcid Vial) 20 mg 1X ONCE IVP Last administered on 05/30/19at 23:07; Start 05/30/19 at 22:30; Stop 05/30/19 at 22:31; Status DC Sodium Chloride 1,000 ml @ 1,000 mls/hr 1X ONCE IV Last administered on 05/30/19at 23:08; Start 05/30/19 at 22:30; Stop 05/30/19 at 23:29; Status DC Iohexol (Omnipaque 300 Mg/ml) 60 ml 1X ONCE IV Last administered on 05/30/19at 23:46; Start 05/30/19 at 23:45; Stop 05/30/19 at 23:46; Status DC Info (CONTRAST GIVEN -- Rx MONITORING) 1 each PRN DAILY PRN MC SEE COMMENTS; Start 05/30/19 at 23:45; Stop 06/01/19 at 23:44; Status DC Ondansetron HCl (Zofran) 4 mg PRN Q8HRS PRN IV NAUSEA/VOMITING; Start 05/31/19 at 00:00; Stop 05/31/19 at 23:59; Status DC Aspirin (Pankaj Aspirin) 325 mg 1X ONCE PO Last administered on 05/31/19at 00:39; Start 05/31/19 at 00:45; Stop 05/31/19 at 00:46; Status DC Sodium Chloride 1,000 ml @ 75 mls/hr [id number] IV Last administered on 06/01/19at 02:14; Start 05/31/19 at 12:45 Acetaminophen (Tylenol) 650 mg PRN QID PRN PO PAIN; Start 05/31/19 at 13:30 Aspirin (Ecotrin) 81 mg DAILY PO Last administered on 06/02/19at 07:45; Start 05/31/19 at 14:00 Furosemide (Lasix) 40 mg DAILY PO ; Start 06/01/19 at 09:00; Stop 05/31/19 at 13:22; Status DC Levothyroxine Sodium (Synthroid) 25 mcg DAILY07 PO Last administered on 06/02/19at 07:45; Start 05/31/19 at 14:00 Tramadol HCl (Ultram) 25 mg PRN Q6HRS PRN PO PAIN; Start 05/31/19 at 13:30 Potassium Chloride (Klor-Con) 20 meq 1X ONCE PO ; Start 05/31/19 at 13:30; Stop 05/31/19 at 13:31; Status Cancel Potassium Chloride (Klor-Con) 20 meq ONCE ONCE PO ; Start 05/31/19 at 13:18; Stop 05/31/19 at 13:19; Status Cancel Potassium Bicarbonate (Potassium Effervescent Tablet) 40 meq 1X ONCE PO Last administered on 05/31/19at 14:27; Start 05/31/19 at 14:15; Stop 05/31/19 at 14:16; Status DC Active Scripts Active Zofran (Ondansetron Hcl) 4 Mg Tablet 1 Tab PO Q6HRS 10 Days Tramadol Hcl 50 Mg Tablet 0.5 Tab PO PRN Q6HRS Reported [potassium cholride] 30 Meq PO DAILY Tylenol (Acetaminophen) 325 Mg Tablet 1-2 Tab PO QID PRN Furosemide 40 Mg Tablet 1 Tab PO DAILY Aspir-Low (Aspirin) 81 Mg Tablet. 1 Tab PO DAILY Levothyroxine Sodium 25 Mcg Tablet 1 Tab PO DAILY Vitals/I & O Vital Sign - Last 24 Hours 06/01/19 06/01/19 06/01/19 06/01/19 14:53 19:40 20:00 23:35 Temp 98.2 98.3 97.6 98.2 98.3 97.6 Pulse 62 66 78 Resp 16 17 18 B/P (MAP) 109/57 (74) 128/62 (84) 131/86 (101) Pulse Ox 97 97 96 O2 Delivery Room Air Room Air Room Air Room Air 06/02/19 06/02/19 06/02/19 06/02/19 03:40 07:00 08:00 11:00 Temp 98.1 97.6 97.9 98.1 97.6 97.9 Pulse 64 68 62 Resp 18 18 18 B/P (MAP) 145/68 (93) 147/71 (96) 159/71 (100) Pulse Ox 97 97 98 O2 Delivery Room Air Room Air Room Air Room Air Intake and Output 06/01/19 06/01/19 06/02/19 15:00 23:00 07:00 Intake Total 360 ml 0 ml Output Total 550 ml 150 ml Balance -190 ml -150 ml KATRIN LOPEZ MD Jun 02, 2019 13:07
--- NOTE | 2019-06-02 13:09 | PDOC3 ---
Discharge Summary Visit Information Date of Admission: May 30, 2019 Date of Discharge: Jun 02, 2019 Admitting Diagnosis: N/V abdominal pain, elevated trop Final Diagnosis Problems Medical Problems: (1) Abdominal pain Status: Acute (2) Elevated troponin Status: Acute (3) Nausea & vomiting Status: Acute Brief Hospital Course Allergies Allergies Coded Allergies Type Severity Reaction Last Updated Verified Penicillins Allergy Intermediate 06/21/17 No Sulfa (Sulfonamide Antibiotics) Allergy Intermediate 06/21/17 No codeine Allergy Intermediate 06/21/17 No morphine Allergy Intermediate 06/21/17 No Vital Signs Vital Signs Date Time Temp Pulse Resp B/P (MAP) Pulse Ox O2 Delivery O2 Flow Rate FiO2 06/02/19 11:00 97.9 62 18 159/71 (100) 98 Room Air 97.9 Lab Results Laboratory Tests Test 06/01/19 08:35 Sodium Level 140 mmol/L (136-145) Potassium Level 4.0 mmol/L (3.5-5.1) Chloride Level 103 mmol/L (98-107) Carbon Dioxide Level 29 mmol/L (21-32) Anion Gap 8 (6-14) Blood Urea Nitrogen 7 mg/dL (7-20) Creatinine 0.8 mg/dL (0.6-1.0) Estimated GFR (Cockcroft-Gault) 82.9 BUN/Creatinine Ratio 9 (6-20) Glucose Level 78 mg/dL (70-99) Calcium Level 8.8 mg/dL (8.5-10.1) Total Bilirubin 0.7 mg/dL (0.2-1.0) Aspartate Amino Transf (AST/SGOT) 25 U/L (15-37) Alanine Aminotransferase (ALT/SGPT) 14 U/L (14-59) Alkaline Phosphatase 66 U/L (46-116) Troponin I Quantitative 0.094 ng/mL (0.000-0.055) Total Protein 6.8 g/dL (6.4-8.2) Albumin 3.2 g/dL (3.4-5.0) Albumin/Globulin Ratio 0.9 (1.0-1.7) Brief Hospital Course Ms Coulter is an 83-year-old F w/ PMHx hyperlipidemia, hypertension, hypothyroidism, sarcoidosis, breast cancer, osteoarthrosis who p/w diffuse abdominal pain, worse in left lower quadrant that has been progressive for the past week. She also notes nausea, vomiting and loose stools. CT abdomen shows no obstructive process. Cr 1.2, K3.4 and troponin elevated at 0.155. Admitted for further care with GI and Cardiology consultation. Echo There is moderate to severe concentric left ventricular hypertrophy. The Ejection Fraction is 55-60%. There is normal LV segmental wall motion. Feeling better, no further vomiting or diarrhea. Has tried liquid diet, which went well on 06/01, now advanced to general diet x2 meals with no further symptoms. No CP or SOB. Will have outpatient f/u with PCP. Zofran as needed, throw out all food at the house. A/P: N/V/D - likely gastroenteritis. Will consult GI, ADAT Elevated troponin - likely demand ischemia from acute GI process. Trended troponins, consulted cardiology Hypothyroidism - cont meds H/o breast cancer - in remission Sarcoidosis - stable KYMBERLY - likely vasomotor nephropathy from GI losses Hypokalemia - replace oral, likely GI loss HTN - cont meds HLD - cont meds Greater than 30 minutes spent on d/c Discharge Information Condition at Discharge: Improved Follow Up: Weeks (1) Disposition/Orders: D/C to Home Scheduled Aspirin (Aspir-Low) 81 Mg Tablet.dr, 1 TAB PO DAILY for ordered, #30 Ref 3 (Reported) Entered as Reported by: Arya Rodrigues on 05/31/19106 Last Action: Continued on 05/31/191319 by KATRIN LOPEZ MD Furosemide (Furosemide) 40 Mg Tablet, 1 TAB PO DAILY for water pill, #30 Ref 5 (Reported) Entered as Reported by: Arya Rodrigues on 05/31/19106 Last Action: Continued on 05/31/191319 by KATRIN LOPEZ MD Levothyroxine Sodium (Levothyroxine Sodium) 25 Mcg Tablet, 1 TAB PO DAILY for thyroid, #30 Ref 5 (Reported) Entered as Reported by: Arya Rodrigues on 05/31/19106 Last Action: Continued on 05/31/191319 by KATRIN LOPEZ MD Ondansetron Hcl (Zofran) 4 Mg Tablet, 1 TAB PO Q6HRS for Nausea for 10 Days, #16 Prescribed by: KATRIN LOPEZ MD on 06/02/19 1306 Tramadol Hcl (Tramadol Hcl) 50 Mg Tablet, 0.5 TAB PO PRN Q6HRS, #15 Prescribed by: PATRICIA CAMARENA on 06/21/175 Last Action: Continued on 05/31/19 132 by KATRIN LOPEZ MD [potassium cholride] , 30 MEQ PO DAILY, (Reported) Entered as Reported by: Arya Rodrigues on 05/31/19113 Last Action: New Order on 05/31/19113 by Arya Rodrigues Scheduled PRN Acetaminophen (Tylenol) 325 Mg Tablet, 1-2 TAB PO QID PRN for PAIN, #60 Ref 2 (Reported) Entered as Reported by: Arya Rodrigues on 05/31/19106 Last Action: Continued on 05/31/191319 by MD JOHN CORREIA CHRISTOPHER S MD Jun 02, 2019 13:08
--- NOTE | 2019-06-02 14:33 | NUR ---
Discharge Note: EDNA BASHIR Discharge instructions and discharge home medications reviewed with Patient and a copy given. All questions have been answered and understanding verbalized. The following instructions and handouts were given: Lauri Patient discharged to home with self care via wheelchair
== END 2019-06-02 14:36 | disposition home or self-care (01) | DRG 391 ==
LOC: ER 22:16 → 2 SOUTH 23:43
PROVIDERS: ADMIT Internal Medicine; ATTEND Internal Medicine
DX: K52.9 Noninfective gastroenteritis and colitis, unspecified (principal); N17.0 Acute kidney failure with tubular necrosis; I50.30 Unspecified diastolic (congestive) heart failure; D86.9 Sarcoidosis, unspecified; E03.9 Hypothyroidism, unspecified; E78.00 Pure hypercholesterolemia, unspecified; E78.5 Hyperlipidemia, unspecified; E87.6 Hypokalemia; I11.0 Hypertensive heart disease with heart failure; Z82.49 Family history of ischemic heart disease and other diseases of the circulatory system; Z90.11 Acquired absence of right breast and nipple; Z90.49 Acquired absence of other specified parts of digestive tract; Z85.3 Personal history of malignant neoplasm of breast; M19.90 Unspecified osteoarthritis, unspecified site; Z88.0 Allergy status to penicillin; Z88.2 Allergy status to sulfonamides; Z88.8 Allergy status to other drugs, medicaments and biological substances
CPT/HCPCS: 36415; 74177; 80053; 80061; 82553; 83690; 83735; 84484; 85025; 85610; 85730; 93005; 93306; 96361; 96374; 96375; J2405; J3490; J7030; Q9967; 99291-25; G0378

== ENCOUNTER → 2020-05-27 | Outpatient (CLI) | payer MEDICARE, OTHER ==
[~2020-05-27] MED LIST changes: +ACET325T9 PO; +ASPI81TA50 PO; +FURO40TA4 PO; +LEVO25TA4 PO; +ONDA4TAB7 PO; +[UNRECOGNIZED DRUG - OTHER] PO
--- NOTE | 2020-06-01 12:13 | RAD ---
DATE: 05/27/2020 12:38 PM EXAM: DIGITAL SCREEN LT W/CAD HISTORY: Screening . History of mastectomy for right breast cancer 1994. COMPARISON: 05/21/2019, 05/17/2018 CC and MLO views of the left breast were performed with digital technique. This study was interpreted with the benefit of Computerized Aided Detection (CAD). FINDINGS: Breast Density: FATTY The Breast Parenchyma is primarily fatty replaced. Breast parenchyma level density A. No suspicious masses, microcalcifications or architectural distortion is present to suggest malignancy. The visualized axilla is unremarkable. IMPRESSION: No mammographic evidence of malignancy. BI-RADS CATEGORY: 1 NEGATIVE RECOMMENDED FOLLOW-UP: 12M 12 MONTH FOLLOW-UP Annual screening mammography is recommended, unless clinically indicated sooner based on symptoms or change in physical exam. PQRS compliance statement: Patient information was entered into a reminder system with a target due date for the next mammogram. Mammography is a sensitive method for finding small breast cancers, but it does not detect them all and is not a substitute for careful clinical examination. A negative mammogram does not negate a clinically suspicious finding and should not result in delay in biopsying a clinically suspicious abnormality. "Our facility is accredited by the [employer] Mammography [employer]."
== END ==
LOC: MAMMO 12:25
PROVIDERS: ATTEND Internal Medicine Hematology & Oncology
DX: Z12.31 Encounter for screening mammogram for malignant neoplasm of breast (principal); Z17.1 Estrogen receptor negative status [ER-]
CPT/HCPCS: 77067

== ENCOUNTER → 2021-05-31 | Outpatient (CLI) | payer MEDICARE, OTHER ==
--- NOTE | 2021-05-31 16:36 | RAD ---
Study: [id number] Unilat Mammo History: Left breast screening. Comparison: Most recently on 05/27/2020. Technique: Routine 2D digital mammogram views were obtained of the left breast. Interpretation was as sisted with the use of computer-aided detection. Findings: Breast Tissue Density A : The breasts are almost entirely fatty. There are no dominant masses, suspicious microcalcifications, or architectural distortion. Several c alcifications with benign morphology and distribution are again demonstrated IMPRESSION: No mammographic evidence of malignancy. Recommend routine screening mammography in one year. BI-RADS category 2: Benign findings. Patient information is entered into the reminder system with a target due date for the next screening mammogram. "Our facility is accredited by the [employer] Mammography [employer]." Electronically signed by: GELY KENDRICK MD (05/31/2021 4:33 PM) [id number]
== END ==
LOC: MAMMO 10:52
PROVIDERS: ATTEND Internal Medicine Hematology & Oncology
DX: Z12.31 Encounter for screening mammogram for malignant neoplasm of breast (principal)
CPT/HCPCS: 77067